=== PATIENT | male | born 1960 | race Caucasian/White ===

== ENCOUNTER 2017-03-22 15:38 | Emergency (ER) | payer OTHER ==
[~2017-03-22] VITALS: Ht 175.3 cm; Wt 88.6 kg
[2017-03-22 16:52] LABS: HEMATOCRIT 43.2 % (38.0-50.0); MCH 31.4 PG (29.0-34.0); MCHC 33.1 G/DL (30.0-36.0); MCV 94.9 FL (86-99); MEAN PLAT.VOLUME 9.2 uM^3 (9.0-12.4); PLATELET COUNT 108 K/uL (156-360); RBC DIS.WIDTH-CV 14.5 % (11.8-14.6); RBC DIS.WIDTH-SD 50.5 % (39-53); RED BLOOD COUNT 4.55 M/uL (4.00-5.50); WHITE BLOOD COUNT 9.2 K/uL (4.1-10.2)
[2017-03-22 17:04] LABS: CHLORIDE 98 mEq/L (99-109); POTASSIUM 4.2 mEq/L (3.7-5.4); SODIUM 142 mEq/L (136-147)
[2017-03-22 17:06] LABS: GLUCOSE 78 mg/dL (70-99)
[2017-03-22 17:12] LABS: ANION GAP 10 MEQ/L (2-14); GFR ESTIMATE (CALCULATED) > 59 mL/min/; UREA NITROGEN (BUN) 17 mg/dL (9-23)
[2017-03-22 17:28] LABS: D-DIMER ELISA < 0.15 mg/L FEU (< 0.57)
[2017-03-22 17:30] LABS: TROP-I INTERPRETATION NEGATIVE; TROPONIN-I 0.05 ng/mL (0.0-0.30)
[2017-03-22 17:45] LABS: ADD MIUA? YES; BILIRUBIN NEGATIVE; BLOOD NEGATIVE; COLOR YELLOW ((YELLOW)); GLUCOSE (STRIP) NEGATIVE; KETONES NEGATIVE; LEUKOCYTES NEGATIVE; NITRITE NEGATIVE; PROTEIN (STRIP) NEGATIVE; SPECIFIC GRAVITY 1.016 (1.000-1.030); UROBILINOGEN 0.2 MG/DL (0.2-1.0)
[2017-03-22 17:47] LABS: BACTERIA NONE SEEN /HPF; EPITHELIAL CELLS RARE /HPF; MUCUS TRACE /LPF; RED BLOOD CELLS 0-5 /HPF (0-5); UCUL ADDED? NO; WHITE BLOOD CELLS 0-5 /HPF (0-5)
[2017-03-22 18:17] LABS: INTER. NORMALIZED RATIO 3.1; PROTHROMBIN TIME 32.8 (9.2-11.2); PTT 33.8 (25-32)
[2017-03-22] MEDS ORDERED: ZOFRAN4 MG PO (19:43)
[2017-03-22] MEDS ORDERED: PERCOCET 5/31 TABLET PO (19:43)
[2017-03-22 20:13] VITALS: BP 114/87
== END 2017-03-22 20:15 | disposition home or self-care (01) ==
LOC: EME 15:38
PROVIDERS: Emergency Medicine
DX: M54.5 Low back pain (principal); R53.1 Weakness; G89.29 Other chronic pain; I25.2 Old myocardial infarction; Z88.0 Allergy status to penicillin; Z88.6 Allergy status to analgesic agent; F17.200 Nicotine dependence, unspecified, uncomplicated; Z95.1 Presence of aortocoronary bypass graft
CPT/HCPCS: 71020; 71250; 74176; 80048; 81003; 83880; 84484; 85027; 85379; 85610; 85730; 87086; 99281; 99285; J2060; J2270